=== PATIENT | female | born 1930 | race Caucasian/White ===

== ENCOUNTER → 2017-12-30 | Emergency (ER) | payer OTHER ==
[~2017-12-30] VITALS: Ht 152.4 cm; Wt 41.3 kg
== END | disposition home or self-care (01) ==
LOC: ER 12:27
DX: B34.9 Viral infection, unspecified (principal); J11.1 Influenza due to unidentified influenza virus with other respiratory manifestations

== ENCOUNTER 2018-03-26 13:55 | Outpatient (CLI) | payer OTHER | END 2018-03-26 14:04 | disposition home or self-care (01) | LOC: RAD 13:55 | DX: S99.101A Unspecified physeal fracture of right metatarsal, initial encounter for closed fracture (principal); E79.0 Hyperuricemia without signs of inflammatory arthritis and tophaceous disease; J45.998 Other asthma ==

== ENCOUNTER 2019-02-01 10:39 | Emergency (ER) | payer OTHER ==
[~2019-02-01] VITALS: Ht 149.9 cm; Wt 41.3 kg
[2019-02-01] MEDS ORDERED: ZOCOR20 MG (11:10)
[2019-02-01] MEDS ORDERED: OMEPRAZOLE40 MG (11:12)
== END 2019-02-01 15:28 | disposition home or self-care (01) ==
LOC: ER 10:39
DX: G89.11 Acute pain due to trauma (principal); M25.551 Pain in right hip; M79.671 Pain in right foot; M79.651 Pain in right thigh; F45.42 Pain disorder with related psychological factors

== ENCOUNTER 2019-04-05 12:02 | Emergency (ER) | payer OTHER ==
[~2019-04-05] VITALS: Ht 144.8 cm; Wt 41.3 kg
[~2019-04-05 12:02] MED LIST: OMEPRAZOLE40 MG; ZOCOR20 MG
== END 2019-04-05 15:24 | disposition home or self-care (01) ==
LOC: ER 12:02
DX: S51.852A Open bite of left forearm, initial encounter (principal); W54.0XXA Bitten by dog, initial encounter; Y93.89 Activity, other specified; Y92.098 Other place in other non-institutional residence as the place of occurrence of the external cause; Y99.8 Other external cause status

== ENCOUNTER 2019-04-16 15:10 | Emergency (ER) | payer OTHER ==
[~2019-04-16] VITALS: Ht 149.9 cm; Wt 41.3 kg
== END 2019-04-16 17:41 | disposition home or self-care (01) ==
LOC: ER 15:10
DX: Z48.02 Encounter for removal of sutures (principal)